=== PATIENT | male | born 1960 | race Caucasian/White ===

== ENCOUNTER → 2016-11-27 | Outpatient (CLI) | payer BC ==
[2016-11-27 08:55] LABS: Basophils # (A) 0.1 k/uL (0-0.2); Basophils % (A) 1 %; CH 33.5; CHCM 34.2; Eosinophils # (A) 0.2 k/uL (0-0.7); Eosinophils % (A) 2 %; HCT 48.8 % (39.0-53.0); HDW 2.87; HGB 16.4 gm/dL (13.0-17.5); Luc % (Auto) 2; Lymphocytes # (A) 2.4 k/uL (1.0-4.8); Lymphocytes % (A) 25 %; MCHC 33.5 g/dL (31.0-37.0); MCV 98.4 fL (80.0-100.0); Mean Platelet Volume 7.6; Monocytes # (A) 0.6 k/uL (0-1.0); Monocytes % (A) 6 %; Neutrophils # (A) 6.1 k/uL (1.3-7.7); Neutrophils % (A) 64 %; RBC 4.97 m/uL (4.30-5.90); RDW 12.9 % (11.5-15.5); WBC 9.5 k/uL (3.8-10.6); WBC (Perox) 9.86
[2016-11-27 09:07] LABS: Anion Gap 15 mmol/L; Blood Urea Nitrogen 14 mg/dL (9-20); Calcium 10.1 mg/dL (8.4-10.2); Carbon Dioxide 31 mmol/L (22-30); Chloride 97 mmol/L (98-107); Glucose 148 mg/dL (74-99); INR 1.1 (<1.1); Non-African American GFR(MDRD) >60 (>60 ml/min/1.73 sqM); Partial Thromboplastin Time 23.6 sec (22.0-30.0); Potassium 4.7 mmol/L (3.5-5.1); Prothrombin Time 11.3 sec (9.0-12.0); Sodium 143 mmol/L (137-145)
[2016-11-27 10:56] LABS: Appearance,Urine Cloudy (Clear); Bacteria,Urine Rare /hpf; Bilirubin,Urine Negative (Negative); Glucose,Urine (UA) Negative (Negative); Ketones,Urine Negative (Negative); Leukocyte Esterase,Urine Negative (Negative); Mucus,Urine Few /hpf; Nitrite,Urine Negative (Negative); Particle Count 12429; Protein,Urine Trace (Negative); RBC,Urine 1 /hpf (0-5); UA Billing (MACRO vs. MICRO) MICRO; Urobilinogen,Urine <2.0 mg/dL (<2.0); WBC,Urine 2 /hpf (0-5)
== END | disposition home or self-care (01) ==
LOC: LABPAT 07:31
PROVIDERS: ATTEND Orthopaedic Surgery Orthopaedic Surgery of the Spine
DX: Z01.812 Encounter for preprocedural laboratory examination (principal); Z01.810 Encounter for preprocedural cardiovascular examination
CPT/HCPCS: 80048; 81001; 85025; 85610; 85730; 86850; 86900; 86901; 87070

== ENCOUNTER → 2016-11-27 | Outpatient (CLI) | payer BC ==
--- NOTE | 2016-11-27 07:40 | XR ---
EXAMINATION TYPE: XR chest 2V DATE OF EXAM: 11/27/2016 7:29 AM COMPARISON: NONE INDICATION: Presurgical evaluation TECHNIQUE: Frontal and lateral views of the chest are obtained. FINDINGS: The heart size is normal. The pulmonary vasculature is normal. The lungs are clear. IMPRESSION: 1. No acute pulmonary process.
== END | disposition home or self-care (01) ==
LOC: RADXRMAIN 07:04
PROVIDERS: ATTEND Orthopaedic Surgery Orthopaedic Surgery of the Spine
DX: Z01.818 Encounter for other preprocedural examination (principal)
CPT/HCPCS: 71020

== ENCOUNTER 2016-12-27 12:44 | Day surgery (SDC) | payer BC ==
[2016-12-26 08:30] VITALS: BMI 34.7
[~2016-12-27 12:44] MED LIST: BACITRACIN 50,000 UNIT, POLYMYXIN B 500,000 UNIT in SODIUM CHLORIDE 0.9% IRRIGATIO 1,00... IRRIGATION ONE; LIDOCAINE 1% 20 ML VIAL (10MG/ML) FOR IV START INTRADERMA PRN; ONDANSETRON 4 MG/2 ML VIAL IVP ONE; SCOPOLAMINE 1.5MG/72HR PATCH TRANSDERM ONE; ceFAZolin 2 GM in SODIUM CHLORIDE 0.9% 100 ML IVPB ONE
[2016-12-27 13:04] VITALS: RESP 16
[2016-12-27] MEDS: LACTATED RINGERS 1,000 ML IV SCH (13:14)
[2016-12-27] MEDS ORDERED: fentaNYL (PF) 50 MCG/ML 2 ML AMP ONE (14:36)
[2016-12-27] MEDS ORDERED: LIDOCAINE 1% INJ 10MG/ML (20 ML MDV) ONE (14:36)
[2016-12-27] MEDS ORDERED: MIDAZOLAM 2 MG/2 ML VIAL ONE (14:36)
[2016-12-27] MEDS ORDERED: GLYCOPYRROLATE 0.2 MG/ML 2 ML VIAL ONE (14:36)
[2016-12-27] MEDS ORDERED: HYDROmorphone (PF) 1 MG/ML ONE (14:36)
[2016-12-27] MEDS ORDERED: PHENYLEPHRINE-0.9% NACL SYG 1 MG/10 ML SYRINGE ONE (14:36)
[2016-12-27] MEDS ORDERED: NEOSTIGMINE 1 MG/ML 10 ML VIAL ONE (14:36)
[2016-12-27] MEDS ORDERED: ePHEDrine 50 MG/ML 1 ML AMP ONE (14:36)
[2016-12-27] MEDS ORDERED: PROPOFOL 10 MG/ML 20 ML VIAL IV ONE (14:36)
[2016-12-27] MEDS ORDERED: ROCURONIUM BROMIDE 10 MG/ML 10 ML VIAL IV ONE (14:36)
[2016-12-27] MEDS ORDERED: SUCCINYLCHOLINE CHLORIDE 100 MG/5 ML SYR IV ONE (14:36)
[2016-12-27] MEDS ORDERED: LIDOCAINE 0.5%-EPI 1:200,000 50 ML VIAL SQ ONE ×3 (14:56→15:04)
[2016-12-27] MEDS ORDERED: THROMBIN (BOVINE) 5,000 UNIT VIAL MISCELLANE ONE ×2 (14:57→15:04)
[2016-12-27] MEDS ORDERED: GELATIN SPONGE,ABSORB (SMALL) 1 EACH SPONGE MISCELLANE ONE ×2 (14:57→15:04)
[2016-12-27] MEDS ORDERED: methylPREDNISolone ACETATE 80 MG/ML 1 ML VIAL INJ ONE ×4 (14:57→15:51)
[2016-12-27] MEDS ORDERED: LACTATED RINGERS 1,000 ML IV ONE (15:21)
--- NOTE | 2016-12-27 15:33 | FL ---
EXAMINATION TYPE: FL guidance operating room, XR lumbar spine 1V DATE OF EXAM: 12/27/2016 3:22 PM CLINICAL HISTORY: Low back pain, lumbar laminectomy. TECHNIQUE: Fluoroscopy. Intraoperative limited one view lumbar spine. COMPARISON: None. FINDINGS: Fluoroscopic guidance was provided during lumbar laminectomy procedure performed by Dr. Brian villa. A total of 6 seconds of fluoroscopic time was utilized during the procedure and one spot intrao perative image is acquired. Single image acquired shows advancement of opening surgical hardware near level of lumbosacral juncti on from posterior approach. IMPRESSION: As Above.
--- NOTE | 2016-12-27 16:08 | P.OP ---
Date of Procedure: 12/27/16 Preoperative Diagnosis: Herniated nucleus pulposus L5-S1, degenerative disc disease L5-S1, lower extremity radiculopathy Postoperative Diagnosis: Same Anesthesia: GETA Pathology: none sent Condition: stable Disposition: PACU Description of Procedure: BRIEF OPERATIVE NOTE Preoperative Diagnosis: Herniated nucleus pulposus L5-S1, degenerative disc disease L5-S1, lower extremity radiculopathy Postoperative Diagnosis: Same Procedure: Laminectomy and decompression L5-S1 Discectomy for decompression L5-S1 Use of fluoroscopic guidance Surgeon: Dr. High Curriculum Development Manager: Sanjeev Ureña is present throughout the entire the case persistence during positioning, dissection, exposure, visualization, and all crucial elements of the case as well as closure. Anesthesia: General anesthesia per Dr. Marx Estimated blood loss: Approximately 200 mL Complications: None apparent Components implanted: None Disposition: To recovery room in good stable condition. OPERATIVE INDICATIONS The patient has been having issues in their lower back and lower extremities. He was found have a disc herniation with extruded fragment at L5-S1 on the right which correlated well with his low back and lower extremity symptoms. He was having significant radiculopathy and some weakness at his lower extremity. He is not having any substantial benefit despite aggressive conservative care. The patient has been through conservative treatment. We discussed various treatment options including surgery, and the patient wishes to proceed with surgery We discussed the risk, patient's alternatives and benefits of surgery including but not limited to, risk of bleeding risk of infection, risk of need for further surgery, risk of decreased, loss of motion, loss of function, nerve damage, paralysis, heart attack, blindness and . OPERATIVE SUMMARY After discussing all the risks, patient alternatives and benefits at length, the patient elected to proceed with surgical intervention, signed informed consent, and presented for their procedure. The patient was seen and examined in the preoperative holding area and the surgical site was marked. The patient was given antibiotics and brought to the operating room. The patient was sedated and intubated by anesthesia in standard fashion. The patient was positioned on to the operating room table in a prone position on the appropriate frame which was well-padded and well molded. We were careful to pad any bony prominences and pressure points. We were careful to maintain the patient's cervical spine and good neutral alignment and position throughout. The patient was prepped and draped in a normal standard fashion. An appropriate timeout and keystone protocol performed. We were able to proceed with the surgery. Fluoroscopy was utilized to establish the appropriate level. The local wound area was infiltrated with local anesthetic. An incision was made at the midline longitudinally over the appropriate levels at L5-S1. Dissection was taken down subcutaneously to the level of the fascia which was split midline. Dissection was taken over the lamina. Intraoperative fluoroscopy was taken which showed a marker at the appropriate level at L5-S1. With the appropriate level positively confirmed, we were able to proceed with laminectomy. The wound was copiously irrigated and suctioned dry as had been done periodically throughout the case. I performed a laminectomy with a combination of curettes and a high-speed bur and Kerrison rongeurs. A small medial facetectomy was performed again further access. A partial foraminotomy was also performed. Portions of the ligamentum flavum were taken down to expose the dura and traversing nerve root. I was able to mobilize the traversing nerve root and gain access to the disc space. Note was made of obvious compression from the disc. Protecting the soft tissue structures, a small annulotomy was established. I was able to perform discectomy and remove any extruded disc fragments and any loose fragments from within the disc itself. Portions of the posterior annulus were torn and flipped dorsally. These fragments were removed which gave further decompression. There is extruded disc which was removed as well. There is some disc significant desiccation noted. I tried to preserve the disc annulus that appeared stable. There were no further extruded fragments noted. There is no evidence of dural tear or leak. Good hemostasis maintained. The wound was copiously irrigated and suctioned dry. Good decompression and discectomy was noted. We were able to proceed with closure. The fascia was closed for a watertight closure. The subcuticular tissue was closed with absorbable suture. The wound was cleaned and dried and dressed with the appropriate dressing. The drapes were broken down. The patient was gently rolled back onto their hospital bed being careful to maintain their cervical spine and good neutral alignment and position. They were woken up by anesthesia, extubated, and brought to the recovery room in good stable condition. The patient will be admitted to the hospital for observation and for appropriate postoperative care, medical management and monitoring. We will continue to follow them closely about the postoperative course.
[2016-12-27] MEDS ORDERED: IBUPROFEN 600 MG TAB PO PRN (16:09)
[2016-12-27] MEDS ORDERED: ONDANSETRON 4 MG/2 ML VIAL IVP PRN (16:09)
[2016-12-27] MEDS ORDERED: HYDROcodone/APAP 5-325MG 1 EACH TAB PO PRN ×2 (16:09)
[2016-12-27] MEDS ORDERED: KETOROLAC 30 MG/ML 1 ML VIAL IVP PRN (16:09)
[2016-12-27] MEDS ORDERED: DIAZEPAM 5 MG TAB PO PRN (16:09)
[2016-12-27] MEDS ORDERED: HYDROmorphone 1 MG/ML 1 ML SYRINGE IVP PRN ×2 (16:09)
[2016-12-27] MEDS ORDERED: BENZOCAINE/MENTHOL LOZENG 1 EACH LOZENGE MUCOUS MEM PRN (16:09)
[2016-12-27] MEDS ORDERED: ACETAMINOPHEN TAB 325 MG TAB PO PRN (16:11)
[2016-12-27] MEDS: HYDROmorphone 1 MG/ML 1 ML SYRINGE IVP PRN ×4 (16:35→17:04)
[2016-12-27] MEDS ORDERED: LISINOPRIL 20 MG TAB PO SCH (21:00)
[2016-12-27] MEDS: ceFAZolin 3 GM in SODIUM CHLORIDE 0.9% 100 ML IVPB SCH (23:13)
[2016-12-28] MEDS: SODIUM CHLORIDE 0.9% 1,000 ML IV SCH ×2 (03:52→10:02)
[2016-12-28 08:23] VITALS: BP 126/75; PULSE 76; TEMP 99
--- NOTE | 2016-12-28 09:18 | P.DS ---
Providers Date of admission: 12/27/2016 Expected date of discharge: 12/28/16 Attending physician: Nia High Primary care physician: Chris Jones - Discharge Diagnosis(es) (1) Herniated nucleus pulposus, L5-S1, right Current Visit: Yes Status: Acute (2) Degenerative disc disease at L5-S1 level Current Visit: Yes Status: Acute (3) Lumbar back pain with radiculopathy affecting right lower extremity Current Visit: Yes Status: Acute Hospital Course: This is a pleasant 56-year-old male who presented with L5-S1 herniated nucleus pulposus and degenerative disc disease with right lower extremity radiculopathy who failed outpatient conservative therapy. He admitted for a L5-S1 laminectomy and decompression with discectomy. The patient tolerated the procedure well and did well postoperatively. He states he's had improvement in his right lower extremity radiculopathy symptoms. He does have some numbness of the right lateral foot and pinky toe. He states his pain amilcar been well- controlled and he is ready for discharge. Condition on day of discharge stable. Patient will be discharged home. Patient was cleared preoperatively for surgery by Dr. Jones. Patient currently denies any nausea, vomiting, fever , or chills. Patient is eating and voiding freely without difficulty. Patient may shower Tegaderm dressing intact. Patient may remove Tegaderm dressing in 3 days and shower without a dressing at that time. Patient should keep Steri- Strips intact and allow them to fall off naturally. Patient should refrain from driving until at least after their first follow-up appointment in the office unless he feels he would be able to drive without difficulty. Patient should avoid excessive bending, lifting, and twisting; no lifting greater than 10 pounds. Patient given a prescription for [place] 5 mg/325 mg take 1 tab every 6 hours as needed for pain, dispense 90 (ninety). This prescription has been sent straight to his pharmacy. Physical Exam on day of discharge: Patient is awake, alert, and oriented 3 Vital signs stable Good chest excursion with deep inspiration and expiration Abdomen soft nontender No signs or symptoms of DVT; no calf pain Extensor hallucis longus, plantarflexion, and dorsiflexion positive sustained bilateral lower extremities Positive sustained range of motion throughout bilateral lower extremities without difficulty Evidence of a small amount of dried blood at the inferior portion of the dressing without active drainage Incision is dry and intact; no erythema, purulence, or signs of infection Tegaderm dressing and non-stick Telfa intact Procedures: L5-S1 laminectomy and decompression with discectomy Patient Condition at Discharge: Stable Plan - Discharge Summary New Discharge Prescriptions: HYDROcodone/APAP 5-325MG [[place] 5] 1 each PO Q6HR PRN #90 tab PRN Reason: Pain Discharge Medication List Acetaminophen [Tylenol] 325 mg PO Q4H PRN 12/26/16 [History] Bisoprolol-Hctz 10-6.25 mg [Ziac 10-6.25] 1 each PO DAILY 12/26/16 [History] Lisinopril [Prinivil] 20 mg PO HS 12/26/16 [History] HYDROcodone/APAP 5-325MG [[place] 5] 1 each PO Q6HR PRN #90 tab 12/27/16 [Rx] Follow up Appointment(s)/Referral(s): Nia High DO [Doctor of Osteopathic Medicine] - 2 Weeks (With Sanjeev Mitchell at Dr. High's office) Activity/Diet/Wound Care/Special Instructions: Keep site clean. May shower with waterproof dressing intact. Do not soak in a tub. On Sunday May remove dressing but leave Steri-Strips intact and allow them to fray off on their own. No heavy or rigorous activity. May ambulate to tolerance. Avoid repetitive bending twisting or lifting. No lifting greater than 20 pounds. Limited prolonged activity and positioning Discharge Disposition: HOME SELF-CARE
[2016-12-28] MEDS: BISOPROLOL-HCTZ 10-6.25 MG 1 EACH TAB PO SCH ×2 (09:56→10:03)
[2016-12-28] MEDS: ceFAZolin 3 GM in SODIUM CHLORIDE 0.9% 100 ML IVPB SCH (10:02)
[2016-12-28] MEDS: LACTATED RINGERS 1,000 ML IV SCH (10:02)
== END 2016-12-28 10:05 | disposition home or self-care (01) ==
LOC: OR 12:44 → 5MS5E 16:19 → OR 12-28 10:05
PROVIDERS: ATTEND Orthopaedic Surgery Orthopaedic Surgery of the Spine
DX: M51.17 Intervertebral disc disorders with radiculopathy, lumbosacral region (principal); M51.37 Other intervertebral disc degeneration, lumbosacral region; I10 Essential (primary) hypertension; Z79.899 Other long term (current) drug therapy
CPT/HCPCS: 86900; 86901; 86850; 72020; 63047; J2250; J1040; J2710; J0690; J2405; J2001; J3010; J1170; J2370; J0330; J2704

== ENCOUNTER → 2022-11-20 | Outpatient (CLI) | payer BC ==
--- NOTE | 2022-11-20 08:53 | CT ---
EXAMINATION TYPE: CT shoulder RT wo con CT DLP: 689.3 mGycm, Automated exposure control for dose reduction was used. DATE OF EXAM: 11/20/2022 7:16 AM COMPARISON: None CLINICAL INDICATION:Male, 62 years old with history of M75.121 rotator cuff tear; Fall, fx TECHNIQUE: Axial images were obtained of the right shoulder . Additional coronal and sagittal reform atted images and soft tissue and bone window were obtained for review. 3-D reconstruction was created on a separate workstation. Contrast used: None Oral contrast used: None FINDINGS: Proximal comminuted right humerus fracture without definitive intra-articular extension. Fr actures extend along the surgical and anatomic necks of the humerus. The glenoid appears intact. The cervical clavicle appears displaced posteriorly on the acromion. There is multiple well-corticated os seous bodies at the level of the AC joint. There is a joint effusion likely representing hemarthrosis . Visualized portions of the neck and chest demonstrate no evidence of fracture. Visualized lungs and mediastinum are within normal limits. IMPRESSION: 1. Acute comminuted proximal right humerus fracture involving the surgical and anatomic neck. No obv ious intra-articular extension. 2. Questionable posterior displacement of the distal clavicle at the common clavicular joint. Unclea r whether this is acute or chronic finding given well-corticated osseous bodies near the AC joint.
== END | disposition home or self-care (01) ==
LOC: RADCTMAIN 06:53
PROVIDERS: ATTEND Orthopaedic Surgery
DX: Z47.89 Encounter for other orthopedic aftercare (principal); S42.231A 3-part fracture of surgical neck of right humerus, initial encounter for closed fracture; M75.121 Complete rotator cuff tear or rupture of right shoulder, not specified as traumatic; M89.511 Osteolysis, right shoulder